=== PATIENT | female | born 1965 | race Two or more races ===

== ENCOUNTER 2022-05-18 10:15 | Inpatient (IN) | payer OTHER ==
[~2022-05-18] VITALS: Ht 149.9 cm; Wt 63.5 kg
[~2022-05-18 10:15] MED LIST: ELIQUIS5 MG PO; PROTONIX40 MG PO
[2022-05-18] MEDS ORDERED: TOPROL XL25 M1 PO (12:54)
[2022-05-18] MEDS ORDERED: HORIZANT300 MG PO (12:54)
[2022-05-18] MEDS ORDERED: SYNTHROID75 MCG PO (12:55)
[2022-05-18] MEDS ORDERED: GLUMETZA500 MG PO (12:55)
[2022-05-18] MEDS ORDERED: SINGULAIR 10MG10 MG PO (12:55)
[2022-05-18] MEDS ORDERED: CLARIT PO (12:56)
[2022-05-18] MEDS ORDERED: FLONASE (12:57)
[2022-05-18] MEDS ORDERED: VITAMIN D PO (12:58)
[2022-05-18] MEDS ORDERED: VITAMIN B PO (12:59)
[2022-05-18] MEDS ORDERED: [UNRECOGNIZED DRUG - CODE] PO (12:59)
[2022-05-18] MEDS ORDERED: ACTICAL PO (13:00)
[2022-05-21] MEDS ORDERED: ATORVASTATIN CA10 MG (14:14)
[2022-05-21] MEDS ORDERED: MAXIMUM D3325 MCG (14:15)
[2022-05-21] MEDS ORDERED: NORFLEX100MG (14:15)
[2022-05-21] MEDS ORDERED: ETODOLAC400 MG (14:15)
[2022-05-21] MEDS ORDERED: GABAPENTIN300 M2 (14:15)
[2022-05-21] MEDS ORDERED: ACTICAL SOFTGE1 EACH (14:19)
[2022-05-21] MEDS ORDERED: CLARITIN10 M1 (14:19)
[2022-05-21] MEDS ORDERED: IRO-PLEX LIQUI120 ML (14:19)
[2022-05-21] MEDS ORDERED: FLONASE16 GM (14:19)
[2022-05-21] MEDS ORDERED: VITAMIN B COMP1 EAC1 (14:19)
[2022-05-24] MEDS ORDERED: PERCOCET 5-3251 EACH PO (12:26)
== END 2022-05-24 14:24 | disposition home or self-care (01) | DRG 743 ==
LOC: O/R 05-21 06:28 → SURG 05-21 10:15 → SURH 05-21 15:26 → SURG 05-21 16:45 → SURH 05-24 14:24
PROVIDERS: ADMIT Surgery; ATTEND Surgery
PROC: 0UT77ZZ Resection of Bilateral Fallopian Tubes, Via Natural or Artificial Opening (ICD-10-PCS; 2022-05-21)
PROC: 0UT27ZZ Resection of Bilateral Ovaries, Via Natural or Artificial Opening (ICD-10-PCS; 2022-05-21)
PROC: 0UQF0ZZ Repair Cul-de-sac, Open Approach (ICD-10-PCS; 2022-05-21)
PROC: 0USG0ZZ Reposition Vagina, Open Approach (ICD-10-PCS; 2022-05-21)
PROC: 0TJB8ZZ Inspection of Bladder, Via Natural or Artificial Opening Endoscopic (ICD-10-PCS; 2022-05-21)
PROC: 0UT97ZZ Resection of Uterus, Via Natural or Artificial Opening (ICD-10-PCS; principal; 2022-05-21 16:45)
DX: D25.1 Intramural leiomyoma of uterus (principal); N72 Inflammatory disease of cervix uteri; N81.11 Cystocele, midline; Z20.822 Contact with and (suspected) exposure to COVID-19